=== PATIENT | male | born 1945 | race Caucasian/White ===

== ENCOUNTER 2019-03-23 16:50 | Inpatient (IN) | payer MEDICARE, MEDICAID ==
--- NOTE | 2019-03-23 17:46 | ED Physician Chart ---
ED Chief Complaint/HPI - Patient Information Date Seen:: 03/23/19 Time Seen:: 17:00 Chief Complaint:: Abdominal Pain History of Present Illness:: onset x 3 days of intermittent, crampy, diffuse abdominal pain and distention; Hx of Cirrhosis and Ascites; pt denies trauma, H/As, S/T, neck pain, cough, C/P , SOB, A/N/V/D/C, fever, chills, bleeding, or urinary s/s Allergies:: Allergies Allergy/AdvReac Type Severity Reaction Status Date / Time Penicillins [PCN] Allergy Verified 03/23/19 17:05 Vitals:: Vital Signs - 8 hr 03/23/19 17:05 Temp 98.6 F HR 75 RR 16 BP 105/72 O2 Sat % 93 Historian:: Patient, Family Member Review:: Nurse's Note Reviewed, Old Chart Reviewed ED Review of Systems - Review of Systems General/Constitutional: No fever, No chills, No weight loss, No weakness, No diaphoresis, No edema, No loss of appetite Skin: No skin lesions, No rash, No bruising Head: No headache, No light-headedness Eyes: No loss of vision, No pain, No diplopia ENT: No earache, No nasal drainage, No sore throat, No tinnitus Neck: No neck pain, No swelling, No thyromegaly, No stiffness, No mass noted Cardio Vascular: No chest pain, No palpitations, No PND, No orthopnea, No edema Pulmonary: No SOB, No cough, No sputum, No wheezing GI: No nausea, No vomiting, No diarrhea, Pain, No melena, No hematochezia, No constipation, No hematemesis G/U: No dysuria, No frequency, No hematuria, No nacturia Musculoskeletal: No bone or joint pain, No back pain, No muscle pain Endocrine: No polyuria, No polydipsia Psychiatric: No prior psych history, No depression, No anxiety, No suicidal ideation, No homicidal ideation, No auditory hallucination, No visual hallucination Hematopoietic: No bruising, No lymphadenopathy Allergic/Immuno: No urticaria, No angioedema Neurological: No syncope, No focal symptoms, No weakness, No paresthesia, No headache, No seizure, No dizziness, No confusion, No vertigo ED Past Medical History - Past Medical History Obtainable: Yes Past Medical History: PUD/GERD, Other (Cirrhosis) Family History: HTN Social History: Non Smoker, Alcohol, No Drug Use, Surgical History: None Psychiatricy History: None Medication: Reviewed ED Physical Exam - Physical Examination General/Constitutional: Awake, Well-developed, well-nourished, Alert, No distress, GCS 15, Non-toxic appearing, Ambulatory Head: Atraumatic Eyes: Lids, conjuctiva normal, PERRL, EOMI Skin: Nl inspection, No rash, No skin lesions, No ecchymosis, Well hydrated, No lymphadenopathy ENMT: External ears, nose nl, TM canals nl, Nasal exam nl, Lips, teeth, gums nl , Oropharynx nl, Tonsils nl Neck: Nontender, Full ROM w/o pain, No JVD, No nuchal rigidity, No bruit, No mass, No stridor Other Neck comments:: supple; no meningeal signs; no cervical tenderness Respiratory: Nl effort/Exclusion, Clear to Auscultation, No Wheeze/Rhonchi/Rales Cardio Vascular: RRR, No murmur, gallop, rubs, NL S1 S2, Carotid/Femoral/Distal pulses equal bilaterally GI: No tenderness/rebounding/guarding, No organomegaly, No hernia, Normal BS's, Nondistended, No mass/bruits, No McBurney tenderness, Rectum exam nl Other GI comments:: no pulsatile masses; + Ascites : No CVA tenderness Extremities: No tenderness or effusion, Full ROM, normal strength in all extremities, No edema, Normal digits & nails Neuro/Psych: Alert/oriented, DTR's symmetric, Normal sensory exam, Normal motor strength, Judgement/insight normal, Mood normal, Normal gait, No focal deficits Misc: Normal back, No paraspinal tenderness ED Labs/Radiology/EKG Results - Lab Results Comments:: Reviewed - Radiology Results Comments:: Pending - EKG Interpretations Rate & Rhythm: NSR Comments:: non-specific st-t changes ED Septic Shock - . Is Septic Shock (SBP<90, OR Lactate>4 mmol\L) present?: No - <6hrs of presentation: Vital Signs: Vital Signs - 8 hr 03/23/19 17:05 Temp 98.6 F HR 75 RR 16 BP 105/72 O2 Sat % 93 ED Reassessment (Disposition) - Reassessment Reassessment Condition:: Improved - Diagnosis Diagnosis:: Abdominal Pain; Cirrhosis; Ascites; Hypoalbuminemia; Dehydration; Anemia; Elevated Liver Function Tests - Aftercare/Follow up Instructions Aftercare/Follow-Up Instructions:: Counseled pt regarding lab results/diagnosis & need follow up, Counseled pt & family regarding lab results/diagnosis & need follow up - Patient Disposition Discharge/Transfer:: Acute Care w/in this hosp Accepting Physician:: Dr. Muñoz Time Called:: 1829 Time Responded:: 18:30 Admitted to:: Med/Surg Spoke to:: Dr. Muñoz Admitting Medical Physician:: Dr. Muñoz Condition at Disposition:: Stable, Improved
[2019-03-23 17:59] LABS: ALB/GLOB RATIO 0.6 (1.0-1.8); ALBUMIN 2.9 gm/dL (4.2-5.5); ALKALINE PHOSPHATASE 208 U/L (34-104); AMYLASE SERUM 63 U/L (29-103); ANION GAP 11.2 (7.0-16.0); BILIRUBIN,TOTAL 1.1 mg/dL (0.3-1.0); BUN - UREA NITROGEN 31 mg/dL (7-25); CALCIUM SERUM 8.6 mg/dL (8.6-10.3); CHLORIDE 108 mEq/L (98-107); CREATININE - SERUM 1.1 mg/dL (0.7-1.3); GLUCOSE 81 mg/dL (70-105); LIPASE 22 U/L (11-82); POTASSIUM SERUM 4.2 mEq/L (3.5-5.1); SGOT 39 U/L (13-39); SGPT/ALT 32 U/L (7-52); SODIUM SERUM 137 mEq/L (136-145); TOTAL PROTEIN,SERUM 7.4 gm/dL (6.0-8.3)
[2019-03-23 18:16] LABS: BASOPHILE ABSOLUTE 0.1 Th/cumm (0-0.2); MONOCYTE ABSOLUTE 0.7 Th/cmm (0.3-1.0); NEUTROPHILE ABSOLUTE 5.3 Th/cmm (1.8-8.0)
[2019-03-23 18:18] LABS: % BASOPHILS 1.1 % (0.0-2.0); % LYMPHOCYTES 16.8 % (20.0-50.0); % MONOCYTES 9.9 % (2.0-10.0); % NEUTROPHILS 70.2 % (40.0-80.0); EOSINOPHILE ABSOLUTE 0.1 Th/cmm (0.1-0.4); HEMATOCRIT 34.1 % (41.0-60); HEMOGLOBIN 11.5 gm/dL (12-16); LYMPHOCYTE ABSOLUTE 1.3 Th/cmm (1.5-3.0); MEAN CELL VOLUME 103.4 fl (80-99); MEAN CORPUSCULAR HGB CONC 33.9 pg (28.0-36.0); MEAN PLATELET VOLUME 8.3 fl; PLATELET COUNT 131 Th/cmm (150-400); WHITE BLOOD COUNT 7.5 Th/cmm (4.8-10.8)
[2019-03-23 20:31] VITALS: BP 128/67
[2019-03-23] MEDS: Sodium Chloride 0.9% 1,000 ML IV SCH (21:28)
[2019-03-23] MEDS ORDERED: Acetaminophen 500 MG TAB PO PRN (22:09)
[2019-03-24 06:24] LABS: % BASOPHILS 1.4 % (0.0-2.0); % EOSINOPHILS 3.2 % (0.0-5.0); % MONOCYTES 9.5 % (2.0-10.0); % NEUTROPHILS 63.9 % (40.0-80.0); BASOPHILE ABSOLUTE 0.1 Th/cumm (0-0.2); EOSINOPHILE ABSOLUTE 0.2 Th/cmm (0.1-0.4); HEMATOCRIT 30.2 % (41.0-60); HEMOGLOBIN 10.4 gm/dL (12-16); LYMPHOCYTE ABSOLUTE 1.2 Th/cmm (1.5-3.0); MEAN CELL VOLUME 102.5 fl (80-99); MEAN CORPUSCULAR HEMOGLOBIN 35.3 pg (27.0-31.0); MEAN CORPUSCULAR HGB CONC 34.4 pg (28.0-36.0); MEAN PLATELET VOLUME 8.1 fl; MONOCYTE ABSOLUTE 0.5 Th/cmm (0.3-1.0); NEUTROPHILE ABSOLUTE 3.3 Th/cmm (1.8-8.0); PLATELET COUNT 104 Th/cmm (150-400); RED BLOOD COUNT 2.95 Mil/cmm (3.80-5.80); WHITE BLOOD COUNT 5.3 Th/cmm (4.8-10.8)
[2019-03-24 06:40] LABS: INR 1.2 (0.5-1.4); PROTHROMBIN TIME (TEST) 12.4 SECONDS (9.5-11.5)
[2019-03-24 06:50] LABS: ALB/GLOB RATIO 0.6 (1.0-1.8); ALBUMIN 2.3 gm/dL (4.2-5.5); ALKALINE PHOSPHATASE 166 U/L (34-104); ANION GAP 9.1 (7.0-16.0); BILIRUBIN,TOTAL 0.9 mg/dL (0.3-1.0); BUN - UREA NITROGEN 30 mg/dL (7-25); CARBON DIOXIDE 21.9 mEq/L (21.0-31.0); CHLORIDE 111 mEq/L (98-107); GLUCOSE 88 mg/dL (70-105); SGOT 31 U/L (13-39); SGPT/ALT 25 U/L (7-52); SODIUM SERUM 138 mEq/L (136-145)
[2019-03-24] MEDS: Pantoprazole 40 mg EC Tab PO SCH (08:18)
[2019-03-24] MEDS: Lactulose 10 Gm/15 mL 30mL UDC PO SCH ×2 (08:18→16:04)
--- NOTE | 2019-03-24 08:57 | History and Physical ---
History of Present Illness - HPI Chief Complaint: Abdominal pain and distension HPI: Patient went to my office complaining of abdominal pain and distension and some SOB. He has Hx of previous abdominal paracentesis. Vital Signs: Last Vital Signs Temp 98.5 F 03/24/19 08:00 Pulse 64 03/24/19 08:11 Resp 18 03/24/19 08:00 BP 108/68 03/24/19 08:11 Pulse Ox 94 03/24/19 08:00 Past Medical History Cardiovascular: Report: CAD Pulmonary: Report: No Pertinent Hx [employer]: Report: No Pertinent Hx GI: Report: Other (Cirrhosis, and Ascitis, multiple abdominal paracentesis.) Psych: Report: No Pertinent Hx Musculoskeletal: Report: Weakness Rheumatologic: Report: No pertinent Hx Infectious Disease: Report: No Pertinent Hx Renal/: Report: No Pertinent Hx Endocrine: Report: No Pertinent Hx Dermatology: Report: No Pertinent Hx - Past Surgical History Past Surgical History: No pertinent Hx Family Medical History - Family Member Mother History Unknown: Yes Social History Smoke: Quit (Few years ago) Alcohol: Other (Quit few years ago) Drugs: None Lives: With Family Domestic Violence: Negative - Medications Home Medications: Home Medication Medication Instructions Recorded Type Acetaminophen [Tylenol Extra 500 mg PO Q4H PRN 03/23/19 History Strength] Folic Acid [Folate*] 1 tab PO DAILY 03/23/19 History Furosemide [Lasix] 40 mg PO DAILY 03/23/19 History Lactulose 30 ml PO BID 03/23/19 History Omeprazole 20 mg PO DAILY 03/23/19 History Rifaximin [Xifaxan] 550 mg PO BID 03/23/19 History Spironolactone 100 mg PO DAILY 03/23/19 History - Allergies Allergies/Adverse Reactions: Allergies Allergy/AdvReac Type Severity Reaction Status Date / Time Penicillins [PCN] Allergy Verified 03/23/19 17:05 Review of Systems - Review of Systems Constitutional: Report: Weakness Eyes: Report: No Significant ENT: Report: No Significant Respiratory: Report: SOB with Excertion Cardiovascular: Report: No Significant Gastrointestinal: Report: Abdominal Pain, Other (Abdominal distension) Genitourinary: Report: No Significant Musculoskeletal: Report: No Significant Skin: Report: No Significant Neurological: Report: Weakness Physical Exam - Physical Exam HEENT: Report: Ears Nose Throat within normal limits Neck: Report: Within normal limits Cardiovascular Systems: Report: Regular, Rate and Rhythm Respiratory: Report: Breath Sounds are within normal limits Abdomen: Report: Tender to palpation, Other (Distended, BS present) Back: Report: Inspection of back is within normal limits. Extremities: Report: Non-tender to palpation. Skin: Report: Color of skin is within normal limits Neuro/Psych: Report: Mood affect is within normal limits - Lab Results All Lab Results last 24 hours: Laboratory Results - last 24 hr 03/23/19 03/23/19 03/23/19 17:30 17:30 17:30 WBC 7.5 RBC 3.30 L Hgb 11.5 L Hct 34.1 L MCV 103.4 H MCH 35.0 H MCHC Differential 33.9 RDW 15.0 Plt Count 131 L MPV 8.3 Neutrophils % 70.2 Lymphocytes % 16.8 L Monocytes % 9.9 Eosinophils % 2.0 Basophils % 1.1 PT INR Sodium 137 Potassium 4.2 Chloride 108 H Carbon Dioxide 22.0 Anion Gap 11.2 BUN 31 H Creatinine 1.1 Est GFR ( Amer) TNP Est GFR (Non-Af Amer) TNP BUN/Creatinine Ratio 28.2 Glucose 81 Calcium 8.6 Total Bilirubin 1.1 H AST 39 ALT 32 Alkaline Phosphatase 208 H Ammonia Troponin I 0.01 Total Protein 7.4 Albumin 2.9 L Globulin 4.5 Albumin/Globulin Ratio 0.6 L Amylase 63 Lipase 22 TSH 03/24/19 03/24/19 03/24/19 05:50 05:50 05:50 WBC 5.3 RBC 2.95 L Hgb 10.4 L Hct 30.2 L MCV 102.5 H MCH 35.3 H MCHC Differential 34.4 RDW 15.0 Plt Count 104 L MPV 8.1 Neutrophils % 63.9 Lymphocytes % 22.0 Monocytes % 9.5 Eosinophils % 3.2 Basophils % 1.4 PT INR Sodium 138 Potassium 4.0 Chloride 111 H Carbon Dioxide 21.9 Anion Gap 9.1 BUN 30 H Creatinine 1.0 Est GFR ( Amer) TNP Est GFR (Non-Af Amer) TNP BUN/Creatinine Ratio 30.0 Glucose 88 Calcium 8.0 L Total Bilirubin 0.9 AST 31 ALT 25 Alkaline Phosphatase 166 H Ammonia 96 H Troponin I Total Protein 6.0 Albumin 2.3 L Globulin 3.7 Albumin/Globulin Ratio 0.6 L Amylase Lipase TSH 2.66 03/24/19 05:50 WBC RBC Hgb Hct MCV MCH MCHC Differential RDW Plt Count MPV Neutrophils % Lymphocytes % Monocytes % Eosinophils % Basophils % PT 12.4 H INR 1.20 Sodium Potassium Chloride Carbon Dioxide Anion Gap BUN Creatinine Est GFR ( Amer) Est GFR (Non-Af Amer) BUN/Creatinine Ratio Glucose Calcium Total Bilirubin AST ALT Alkaline Phosphatase Ammonia Troponin I Total Protein Albumin Globulin Albumin/Globulin Ratio Amylase Lipase TSH - Assessment Assessment: Patient is awake, alert, calm on nasal O2. Dx: Ascitis, Alcoholic Cirrhosis, Elevated ammonia, Chronic Anemia - Plan Plan: Patient is in IV NS, Continue with home meds. US guided Paracentesis will be done today
--- NOTE | 2019-03-24 09:13 | Diagnostic Imaging Report ---
CT abdomen and pelvis without intravenous contrast Indication: Abdominal pain Comparison: None, Technique: Axial images were obtained from the lung bases to the bilateral proximal femurs without IV contrast. Coronal reconstructions were made. total DLP: 451, CTDI7.9 FINDINGS: There is a very large right effusion with associated right to left mediastinal shift. Right basal consolidative changes are noted. Few faint bibasal infiltrates are also noted. Evaluation of the solid organs is limited on of IV contrast. There is diffuse ascites. Cirrhotic appearance of the liver is noted. Assessment for focal lesions demonstrate no obvious focal lesions. There appears to be gallstones. There is suboptimal assessment of the spleen no discrete focal lesions. Faint calcifications seen along the head of the pancreas probably due to inflammatory process. Adrenal glands are poorly visualized. No hydronephrosis or nephrolithiasis. Multiple nonspecific fluid and air-filled loops of bowel noted. Appendix is not visualized. No free air. Moderate atherosclerosis is noted. Degenerative changes of the spine and pelvis are noted. There is also spinal scoliosis. 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 There is also associated 6 to 7 mm anterolisthesis at this level. IMPRESSION: Very large right pleural effusion with associated mass effect and [id number] mediastinal shift. Associated right lung consolidative changes infiltrates and additional few bibasal nodular infiltrates. Diffuse ascites. Cirrhotic liver. Small gallstones suspected ultrasound would further clarify. Diffuse atherosclerosis. Degenerative changes with pars defects at L5/S1. There is also associated 6 to 7 mm anterolisthesis at this level.
[2019-03-24 11:54] LABS: URINE SOURCE CLEAN C
[2019-03-24 11:56] LABS: URINE BILIRUBIN NEGATIVE (NEGATIVE); URINE BLOOD NEGATIVE (NEGATIVE); URINE GLUCOSE (UA) NEGATIVE (NEGATIVE); URINE KETONE NEGATIVE (NEGATIVE); URINE LEUKOCYTE ESTERASE NEGATIVE (NEGATIVE); URINE NITRATE NEGATIVE (NEGATIVE); URINE PROTEIN NEGATIVE (NEGATIVE); URINE UROBILINOGEN 0.2 E.U./dL (0.2 - 1.0)
[2019-03-24 12:26] LABS: URINE COLOR YELLOW
[2019-03-24 12:27] LABS: URINE BACTERIA FEW /hpf (NONE SEEN); URINE CLARITY CLEAR (CLEAR); URINE EPITHELIAL CELLS NONE SEEN /lpf (FEW); URINE MICROSCOPIC INDICATED? YES; URINE RBC 0-2 /hpf (0-5); URINE WBC 0-2 /hpf (0-5)
--- NOTE | 2019-03-24 12:36 | Diagnostic Imaging Report ---
Ultrasound-guided right thoracentesis HISTORY: Right pleural effusion COMPARISON: CT abdomen and pelvis on 03/23/2019 Technique/procedure: Informed consent was obtained and sterile techniques were utilized. Using ultrasound guidance 2 L of dark red-colored fluid was drained from the right pleural space and sent to the laboratory for analysis. The patient tolerated the procedure without any immediate complications. IMPRESSION: Successful right ultrasound-guided thoracentesis as above.
--- NOTE | 2019-03-24 12:38 | Diagnostic Imaging Report ---
CHEST X-RAY: AP view INDICATION: Status post right thoracentesis COMPARISON: None FINDINGS: There has been decrease in size of right pleural effusion. Congestive changes are noted. No pneumothorax. Cardiomegaly is noted. Degenerative changes of the spine are noted with scoliosis. IMPRESSION: Status post right thoracentesis with decrease in size of right effusion. No evidence of pneumothorax. Pneumonia of the right lung cannot be excluded. Congestive changes. Cardiomegaly.
[2019-03-24] MEDS: Sodium Chloride 0.9% 1,000 ML IV SCH (16:03)
[2019-03-25 05:38] LABS: % BASOPHILS 1.3 % (0.0-2.0); % EOSINOPHILS 4.5 % (0.0-5.0); % LYMPHOCYTES 20.8 % (20.0-50.0); % MONOCYTES 8.9 % (2.0-10.0); % NEUTROPHILS 64.5 % (40.0-80.0); BASOPHILE ABSOLUTE 0.1 Th/cumm (0-0.2); EOSINOPHILE ABSOLUTE 0.2 Th/cmm (0.1-0.4); HEMATOCRIT 30.2 % (41.0-60); LYMPHOCYTE ABSOLUTE 1.1 Th/cmm (1.5-3.0); MEAN CELL VOLUME 103.5 fl (80-99); MEAN CORPUSCULAR HEMOGLOBIN 34.2 pg (27.0-31.0); MEAN PLATELET VOLUME 8.1 fl; MONOCYTE ABSOLUTE 0.5 Th/cmm (0.3-1.0); NEUTROPHILE ABSOLUTE 3.5 Th/cmm (1.8-8.0); PLATELET COUNT 94 Th/cmm (150-400); RED BLOOD COUNT 2.91 Mil/cmm (3.80-5.80); RED CELL DISTRIBUTION WIDTH 14.6 % (11.5-20.0); WHITE BLOOD COUNT 5.4 Th/cmm (4.8-10.8)
[2019-03-25 05:41] LABS: ALB/GLOB RATIO 0.7 (1.0-1.8); ALBUMIN 2.2 gm/dL (4.2-5.5); ALKALINE PHOSPHATASE 184 U/L (34-104); ANION GAP 7.6 (7.0-16.0); BILIRUBIN,TOTAL 0.9 mg/dL (0.3-1.0); BUN - UREA NITROGEN 27 mg/dL (7-25); CALCIUM SERUM 7.8 mg/dL (8.6-10.3); CARBON DIOXIDE 20.5 mEq/L (21.0-31.0); CHLORIDE 112 mEq/L (98-107); GLUCOSE 85 mg/dL (70-105); POTASSIUM SERUM 4.1 mEq/L (3.5-5.1); SGOT 32 U/L (13-39); SGPT/ALT 24 U/L (7-52); SODIUM SERUM 136 mEq/L (136-145); TOTAL PROTEIN,SERUM 5.6 gm/dL (6.0-8.3)
[2019-03-25] MEDS: Pantoprazole 40 mg EC Tab PO SCH (08:06)
[2019-03-25] MEDS: Lactulose 10 Gm/15 mL 30mL UDC PO SCH ×2 (08:06→16:03)
--- NOTE | 2019-03-25 08:45 | General Progress Note ---
Subjective - Review of Systems Service Date: 03/25/19 Subjective: I am better Objective - Results Result Diagrams: 03/25/19 05:10 03/25/19 05:10 Recent Labs: Laboratory Last Values WBC 5.4 Th/cmm (4.8-10.8) 03/25/19 05:10 RBC 2.91 Mil/cmm (3.80-5.80) L 03/25/19 05:10 Hgb 10.0 gm/dL (12-16) L 03/25/19 05:10 Hct 30.2 % (41.0-60) L 03/25/19 05:10 MCV 103.5 fl (80-99) H 03/25/19 05:10 MCH 34.2 pg (27.0-31.0) H 03/25/19 05:10 MCHC Differential 33.0 pg (28.0-36.0) 03/25/19 05:10 RDW 14.6 % (11.5-20.0) 03/25/19 05:10 Plt Count 94 Th/cmm (150-400) L 03/25/19 05:10 MPV 8.1 fl 03/25/19 05:10 Neutrophils % 64.5 % (40.0-80.0) 03/25/19 05:10 Lymphocytes % 20.8 % (20.0-50.0) 03/25/19 05:10 Monocytes % 8.9 % (2.0-10.0) 03/25/19 05:10 Eosinophils % 4.5 % (0.0-5.0) 03/25/19 05:10 Basophils % 1.3 % (0.0-2.0) 03/25/19 05:10 PT 12.4 SECONDS (9.5-11.5) H 03/24/19 05:50 INR 1.20 (0.5-1.4) 03/24/19 05:50 Sodium 136 mEq/L (136-145) 03/25/19 05:10 Potassium 4.1 mEq/L (3.5-5.1) 03/25/19 05:10 Chloride 112 mEq/L (98-107) H 03/25/19 05:10 Carbon Dioxide 20.5 mEq/L (21.0-31.0) L 03/25/19 05:10 Anion Gap 7.6 (7.0-16.0) 03/25/19 05:10 BUN 27 mg/dL (7-25) H 03/25/19 05:10 Creatinine 1.0 mg/dL (0.7-1.3) 03/25/19 05:10 Est GFR ( Amer) TNP 03/25/19 05:10 Est GFR (Non-Af Amer) TNP 03/25/19 05:10 BUN/Creatinine Ratio 27.0 03/25/19 05:10 Glucose 85 mg/dL (70-105) 03/25/19 05:10 Calcium 7.8 mg/dL (8.6-10.3) L 03/25/19 05:10 Total Bilirubin 0.9 mg/dL (0.3-1.0) 03/25/19 05:10 AST 32 U/L (13-39) 03/25/19 05:10 ALT 24 U/L (7-52) 03/25/19 05:10 Alkaline Phosphatase 184 U/L (34-104) H 03/25/19 05:10 Ammonia 96 umol/L (16-53) H 03/24/19 05:50 Troponin I 0.01 ng/mL (0.01-0.05) 03/23/19 17:30 Total Protein 5.6 gm/dL (6.0-8.3) L 03/25/19 05:10 Albumin 2.2 gm/dL (4.2-5.5) L 03/25/19 05:10 Globulin 3.4 gm/dL 03/25/19 05:10 Albumin/Globulin Ratio 0.7 (1.0-1.8) L 03/25/19 05:10 Amylase 63 U/L (29-103) 03/23/19 17:30 Lipase 22 U/L (11-82) 03/23/19 17:30 TSH 2.66 uIU/ml (0.34-5.60) 03/24/19 05:50 Urine Source CLEAN C 03/24/19 11:52 Urine Color YELLOW 03/24/19 11:52 Urine Clarity CLEAR (CLEAR) 03/24/19 11:52 Urine pH 6.0 (4.6 - 8.0) 03/24/19 11:52 Ur Specific [place] 1.020 (1.005-1.030) 03/24/19 11:52 Urine Protein NEGATIVE mg/dL (NEGATIVE) 03/24/19 11:52 Urine Glucose (UA) NEGATIVE mg/dL (NEGATIVE) 03/24/19 11:52 Urine Ketones NEGATIVE mg/dL (NEGATIVE) 03/24/19 11:52 Urine Blood NEGATIVE (NEGATIVE) 03/24/19 11:52 Urine Nitrate NEGATIVE (NEGATIVE) 03/24/19 11:52 Urine Bilirubin NEGATIVE (NEGATIVE) 03/24/19 11:52 Urine Urobilinogen 0.2 E.U./dL (0.2 - 1.0) 03/24/19 11:52 Ur Leukocyte Esterase NEGATIVE (NEGATIVE) 03/24/19 11:52 Urine RBC 0-2 /hpf (0-5) H 03/24/19 11:52 Urine WBC 0-2 /hpf (0-5) 03/24/19 11:52 Ur Epithelial Cells NONE SEEN /lpf (FEW) 03/24/19 11:52 Urine Bacteria FEW /hpf (NONE SEEN) 03/24/19 11:52 - Physical Exam Vitals and I&O: Vital Signs Temp 98.2 F 03/25/19 07:57 Pulse 68 03/25/19 08:00 Resp 18 03/25/19 07:57 BP 87/56 03/25/19 08:00 Pulse Ox 94 03/25/19 07:57 Intake & Output 03/24/19 03/25/19 03/25/19 18:59 06:59 18:59 Intake Total 929.167 Output Total 3 Balance 929.167 -3 Weight (lbs) 51.483 kg Intake: Intake, IV Amount 929.167 Sodium Chloride 0.9% 1, 929.167 000 ml @ 50 mls/hr IV . Q20H [facility] Rx#:[id number] Output: Urine 3 Other: # Bowel Movements 0 Stool Characteristics Soft Soft Brown Brown Weight Source Bedscale Active Medications: Current Medications Acetaminophen (Tylenol Extra Strength) 500 mg PO Q4H PRN PRN Reason: Pain (Moderate) Stop: 05/22/19 22:08 Folic Acid (Folate) 1 mg PO DAILY [facility]ARA Stop: 05/23/19 08:59 Last Admin: 03/25/19 08:07 Dose: 1 mg Furosemide (Lasix) 40 mg PO DAILY [facility]ARA Stop: 05/23/19 08:59 Last Admin: 03/25/19 07:59 Dose: Not Given Sodium Chloride (Nacl 0.9%) 1,000 mls @ 50 mls/hr IV .Q20H [facility] Stop: 05/22/19 20:29 Last Admin: 03/24/19 16:03 Dose: 50 mls/hr Lactulose (Cephulac) 30 gm PO BID [facility]ARA Stop: 05/23/19 08:59 Last Admin: 03/25/19 08:06 Dose: 30 gm Pantoprazole Sodium (Protonix) 40 mg PO DAILY [facility]ARA Stop: 05/23/19 08:59 Last Admin: 03/25/19 08:06 Dose: 40 mg Rifaximin (Xifaxan) 550 mg PO BID [facility] Stop: 05/23/19 08:59 Last Admin: 03/25/19 08:06 Dose: 550 mg Spironolactone (Aldactone) 100 mg PO DAILY [facility]ARA Stop: 05/23/19 08:59 Last Admin: 03/25/19 08:00 Dose: Not Given General: Alert, Oriented x3 HEENT: Atraumatic Neck: Supple Cardiovascular: Regular rate Abdomen: Bowel sounds, Tender, Other (Distended) Extremities: Other (No edema) Neurological: Other (Walks with a walker) Skin: Other (Warm and dry) Psych/Mental Status: Mental status NL Assessment/Plan - Assessment Assessment: Patient is awake, alert, calm on nasal O2. Thoracocentesis was done 2 litters were obtain, fluid was send for results. Dx: Ascitis, Alcoholic Cirrhosis, Elevated ammonia, Pleural effusion, Chronic Anemia - Plan Plan: Patient is in IV NS, Continue with home meds. Thoracocentesis done, today US guided Paracentesis will be done.
--- NOTE | 2019-03-25 12:20 | Diagnostic Imaging Report ---
Ultrasound-guided paracentesis HISTORY: Ascites COMPARISON: CT abdomen and pelvis on 03/23/2019 FINDINGS: Informed consent was obtained and sterile techniques were utilized. Using ultrasound guidance, 2.4 liters of serous fluid was drained from the right lower quadrant. The patient tolerated the procedure with no immediate complications. IMPRESSION: Successful ultrasound guided paracentesis as above.
[2019-03-25] MEDS: Sodium Chloride 0.9% 1,000 ML IV SCH (12:44)
--- NOTE | 2019-03-25 19:17 | Consultation ---
DATE OF CONSULTATION: 03/24/2019 GASTROENTEROLOGY CONSULTATION REQUESTING PHYSICIAN: Dr. Marko Muñoz. REASON FOR CONSULTATION: Cirrhosis. HISTORY OF PRESENT ILLNESS: A 73-year-old male with a history of decompensated cirrhosis and hepatic encephalopathy controlled with lactulose and rifaximin. He was admitted for shortness of breath. He was noted to have a large right-sided pleural effusion. He underwent thoracentesis of greater than 1 liter today. He also has a history of ascites and is pending paracentesis tomorrow. He is maintained on diuretics of Lasix and Aldactone. PAST MEDICAL HISTORY: As above, also notable for cholelithiasis. MEDICATIONS: See medication list. ALLERGIES: No known drug allergies. SOCIAL HISTORY: Remote alcohol. No tobacco, no drugs. FAMILY HISTORY: Noncontributory. REVIEW OF SYSTEMS: A comprehensive 12-point review of systems conducted and is only positive for those signs and symptoms present in history of present illness. PHYSICAL EXAMINATION: VITAL SIGNS: Noted. GENERAL: The patient is a well-developed, chronically ill-appearing male, in no acute distress. HEENT: Sclerae nonicteric. Oropharynx is clear. CARDIOVASCULAR: Regular rate and rhythm. LUNGS: With occasional rhonchi at the bases. ABDOMEN: Soft. Mild to moderate ascites, mild distention, nontender. EXTREMITIES: No clubbing, cyanosis, or edema. RECTAL: Deferred. LABORATORY/IMAGING: See medical chart. Imaging shows ascites, right-sided pleural effusion and cholelithiasis. IMPRESSION: 1. Decompensated cirrhosis, unclear etiology. Remote history of alcohol. Cannot rule out hepatitis B or C or other etiology such as TESFAYE. 2. Ascites. Pending paracentesis. 3. History of right-sided pleural effusion, rule out hepatic hydrothorax, status post thoracentesis. 4. Cholelithiasis, likely asymptomatic. 5. Thrombocytopenia. RECOMMENDATIONS: 1. Status post thoracentesis, followup fluid analysis results. 2. Await ultrasound-guided paracentesis tomorrow. 3. Continue Lasix and Aldactone and titrate to effect and ensure that creatinine remained stable. 4. Continue lactulose and rifaximin for control of encephalopathy. 5. 2 gram sodium diet. 6. Cholecystectomy at this point is not recommended as gallstones are likely asymptomatic. Thank you, Dr. Marko Muñoz for involving us in the care of your patient. If you have any further questions, please call us. JOB# [id number] MTDAnn Marie
--- NOTE | 2019-03-26 06:27 | Progress Notes ---
DATE: 03/25/2019 SUBJECTIVE: Events noted. Awaiting paracentesis. Had thoracentesis yesterday. OBJECTIVE: VITAL SIGNS: Noted. GENERAL: The patient is a well-developed, chronically ill-appearing male, who is in no acute distress. HEENT: Sclerae nonicteric. Oropharynx is clear. ABDOMEN: Soft, mild to moderate ascites. EXTREMITIES: No edema. LABS/IMAGING: WBC 5.4, hemoglobin 10, platelet count 94, creatinine 1.0, alkaline phosphatase 184. Liver labs are normal. Ammonia 96. Amylase and lipase are normal. IMPRESSION: 1. Decompensated cirrhosis. 2. Ascites pending paracentesis, has had paracentesis in the past, last being 2 months ago. 3. Right-sided pleural effusion requiring thoracentesis yesterday. 4. Hepatic encephalopathy, maintained on lactulose and rifaximin. 5. Thrombocytopenia. RECOMMENDATIONS: 1. Await paracentesis with fluid analysis. 2. A 2 g sodium diet. 3. Diuretics to be titrated to effect and watch for creatinine elevation. 4. Continue lactulose and rifaximin. JOB# [id number]
[2019-03-26] MEDS: Sodium Chloride 0.9% 1,000 ML IV SCH (06:32)
--- NOTE | 2019-03-26 08:32 | Discharge Summary ---
General Discharge Summary - Discharge Summary Date of Admission: 03/23/29 Admitting Diagnosis: Ascitis, Alcoholic cirrhosis, Elevated ammonia, Chronic anemia Discharge Date: 03/26/19 Discharge Diagnosis: Ascitis, Pleural effusion, Alcoholic cirrhosis, Elevated ammonia, Chronic anemia, Thrombocytopenia. Hospital Course: Patient responded to treatment, Abdominal pain and SOB improved. Treatment: Patient started with IV NS, Diuretics, Continue with home meds, Thoracocentesis and abdominal paracentesis were done, Patient was started in IV AB. Condition at Discharge: Stable Disposition: Discharge/Transfered to SNF Home Medications: Home Medication Medication Instructions Recorded Type Acetaminophen [Tylenol Extra 500 mg PO Q4H PRN 03/23/19 History Strength] Folic Acid [Folate*] 1 tab PO DAILY 03/23/19 History Furosemide [Lasix] 40 mg PO DAILY 03/23/19 History Lactulose 30 ml PO BID 03/23/19 History Omeprazole 20 mg PO DAILY 03/23/19 History Rifaximin [Xifaxan] 550 mg PO BID 03/23/19 History Spironolactone 100 mg PO DAILY 03/23/19 History Inpatient Medications: Current Medications Acetaminophen (Tylenol Extra Strength) 500 mg PO Q4H PRN PRN Reason: Pain (Moderate) Stop: 05/22/19 22:08 Folic Acid (Folate) 1 mg PO DAILY [facility] Stop: 05/23/19 08:59 Last Admin: 03/25/19 08:07 Dose: 1 mg Furosemide (Lasix) 40 mg PO DAILY [facility]ARA Stop: 05/23/19 08:59 Last Admin: 03/25/19 07:59 Dose: Not Given Sodium Chloride (Nacl 0.9%) 1,000 mls @ 50 mls/hr IV .Q20H [facility] Stop: 05/22/19 20:29 Last Admin: 03/26/19 06:32 Dose: 50 mls/hr Vancomycin HCl 1 gm/ Sodium (Chloride) 250 mls @ 165 mls/hr IV Q24H [facility] Stop: 05/24/19 21:14 Lactulose (Cephulac) 30 gm PO BID [facility] Stop: 05/23/19 08:59 Last Admin: 03/25/19 16:03 Dose: 30 gm Pantoprazole Sodium (Protonix) 40 mg PO DAILY [facility] Stop: 05/23/19 08:59 Last Admin: 03/25/19 08:06 Dose: 40 mg Rifaximin (Xifaxan) 550 mg PO BID [facility] Stop: 05/23/19 08:59 Last Admin: 03/25/19 16:03 Dose: 550 mg Spironolactone (Aldactone) 100 mg PO DAILY [facility] Stop: 05/23/19 08:59 Last Admin: 03/25/19 08:00 Dose: Not Given Activity: As Tolerated Discharge Diet: 2 Gram Sodium Consults and Follow-Up: Marko Muñoz [Primary Care Provider] - Consulting Speciality: Other (PCP)
[2019-03-26] MEDS: Lactulose 10 Gm/15 mL 30mL UDC PO SCH (09:24)
[2019-03-26] MEDS: Pantoprazole 40 mg EC Tab PO SCH (09:25)
--- NOTE | 2019-03-26 11:54 | Pathology Report ---
[id number] Collection Date: 03/24/2019 Surgeon: Dr. Landen Bruno. Specimen Description: Pleural fluid for cytology. Gross Description: Received in two large containers is approximately 2000 mL of reddish-watery fluid. A medical device sales representative portion is submitted for cytology processing. Microscopic Description: Examination of two cytospins and one cell block shows large numbers of red blood cells admixed with inflammatory cells that consists of mostly neutrophils. The background that contains occasional mesothelial cells and macrophages. Diagnosis: No cytologic evidence for malignancy, pleural fluid cytology. [facility]# [id number] MTDD
--- NOTE | 2019-03-27 03:49 | Progress Notes ---
DATE: 03/26/2019 GASTROENTEROLOGY PROGRESS NOTE SUBJECTIVE: Events noted, status post paracentesis, feels better, tolerating oral diet. OBJECTIVE: VITAL SIGNS: Noted. GENERAL: The patient is a well-developed, chronically ill-appearing male, who is in no acute distress. Son is present at bedside. HEENT: Sclerae are nonicteric. Oropharynx is clear. CARDIOVASCULAR: Regular rate and rhythm. ABDOMEN: Soft, nontender. Mild ascites, more on the right side. EXTREMITIES: No edema. LABORATORY DATA: Relevant labs about the same. Creatinine is normal. Hemoglobin 10. IMPRESSION: 1. Decompensated cirrhosis. 2. Ascites status post paracentesis. 3. Right-sided pleural effusion status post thoracentesis. 4. Hepatic encephalopathy. 5. Thrombocytopenia. RECOMMENDATIONS: 1. Diuresis with Lasix and Aldactone to be titrated to effect with monitoring of sodium and creatinine. 2. A 2 g sodium diet. 3. Lactulose and rifaximin. 4. Paracentesis and thoracentesis in the future as needed. 5. Disposition as per hospitalist. JOB# [id number]
--- NOTE | 2019-03-29 14:08 | Pathology Report ---
[id number] Collection Date: 03/25/2019 Surgeon: Dr. Landen Bruno. Specimen Description: Ascites fluid for cytology. Gross Description: Received in multiple containers are 2400 mL of watery yellowish fluid. A insurance account representative portion is submitted for cytology processing. Microscopic Description: Examination of two cytospins and one cell block shows mostly inflammatory cells that consists of predominantly neutrophils and lymphocytes, admixed with scattered mesothelial cells and macrophages. Diagnosis: No cytologic evidence for malignancy, ascites fluid cytology. [facility]# [id number] [facility]
== END 2019-03-26 11:35 | DRG 432 ==
LOC: ER 16:50 → MSI 19:05
PROVIDERS: ADMIT General Practice; ATTEND General Practice
PROC: 0W993ZZ Drainage of Right Pleural Cavity, Percutaneous Approach (ICD-10-PCS; principal; 2019-03-24)
PROC: 0W9G3ZZ Drainage of Peritoneal Cavity, Percutaneous Approach (ICD-10-PCS; 2019-03-25)
DX: K70.31 Alcoholic cirrhosis of liver with ascites (principal); E41 Nutritional marasmus; J90 Pleural effusion, not elsewhere classified; K72.90 Hepatic failure, unspecified without coma; D64.9 Anemia, unspecified; K80.20 Calculus of gallbladder without cholecystitis without obstruction; D69.6 Thrombocytopenia, unspecified; E88.09 Other disorders of plasma-protein metabolism, not elsewhere classified; E86.0 Dehydration; K21.9 Gastro-esophageal reflux disease without esophagitis; Z88.0 Allergy status to penicillin; Z87.11 Personal history of peptic ulcer disease; Z82.49 Family history of ischemic heart disease and other diseases of the circulatory system; Z68.20 Body mass index [BMI] 20.0-20.9, adult; Z87.891 Personal history of nicotine dependence
CPT/HCPCS: 36415-UA; 71045-TC; 76942-TC; 80053-TC; 81001-TC; 82140-TC; 82150-TC; 83690-TC; 84443-TC; 84484-TC; 85025-TC; 85610-TC; 87070-90; 87075-90; 87205-90; 93005; J2543; J3370; J7030; Z7610